=== PATIENT | female | born 1980 | race Caucasian/White ===

== ENCOUNTER 2019-05-30 14:58 | Observation (INO) | payer OTHER ==
[~2019-05-30] VITALS: Ht 180.3 cm; Wt 81.5 kg
[~2019-05-30 14:58] MED LIST changes: -Augmentin 875-1 EACH PO; -CITA20 PO; -FLUC150A PO; -HYDR1TAB94 PO
--- NOTE | 2019-05-30 15:10 | NUR ---
pt arrived to unit walking independently, a/o x 4, vss, npo
[2019-05-30] MEDS ORDERED: CITA20 PO (15:29)
--- NOTE | 2019-05-30 16:40 | NUR ---
DAY SURGERY TRANSPORTING PT VIRI
--- NOTE | 2019-05-30 16:45 | NUR ---
INTO [facility] [place].PT REPORTS 6/10 ABDOMINAL PAIN AT REST THAT INCREASES TO 9/10 WITH MOVEMENT. History, Chart, Medications and Allergies reviewed before start of procedure.Lungs clear T/O to Auscultation. Patient confirms NPO status and agrees with scheduled surgery. Surgical site prepped with 2% Chlorhexidine cloth wipe.SERUM HCG ADDED ON TO BLOOD DRAWN AT THE URGENT CARE AND TO BE RUN STAT. RESULTS TO BE FAXED TO [facility].
--- NOTE | 2019-05-30 21:34 | NUR ---
summary: pt returned from OR at 1830, a/o x 4, awake, denies n/v, denies pain. post op vs commenced and stable
[2019-05-31 04:14] LABS: BASOPHILS ABSOLUTE AUTO 0.02 K/mm3 (0.00-0.23); BASOPHILS PERCENT AUTO 0 % (0-2); EOSINOPHILS PERCENT AUTO 0 % (0-6); Hematocrit 39.3 % (33.0-51.0); Hemoglobin 12.7 g/dL (11.5-16.0); IMMATURE GRAN ABSOLUTE AUTO 0.08 K/mm3 (0.00-0.10); IMMATURE GRAN PERCENT AUTO 1 % (0-1); LYMPHOCYTES ABSOLUTE AUTO 1.23 K/mm3 (0.84-5.20); LYMPHOCYTES PERCENT AUTO 8 % (21-46); MONOCYTES ABSOLUTE AUTO 0.42 K/mm3 (0.16-1.47); MONOCYTES PERCENT AUTO 3 % (4-13); Mean Corpuscular HGB 29.7 pg (26.0-34.0); Mean Corpuscular HGB Conc 32.3 g/dL (31.5-36.5); Mean Corpuscular Volume 92 fL (80-100); Mean Platelet Volume 11.2 fL (9.1-12.4); NEUTROPHILS ABSOLUTE AUTO 13.17 K/mm3 (1.96-9.15); NEUTROPHILS PERCENT AUTO 88 % (41-73); Platelet Count 245 K/mm3 (150-400); RDW Coefficient Variation 13.9 % (11.7-14.2); RDW Standard Deviation 47.3 fL (35.1-46.3); Red Blood Cell Count 4.27 M/mm3 (3.80-5.20); White Blood Cell Count 14.92 K/mm3 (4.00-11.30)
--- NOTE | 2019-05-31 07:23 | NUR ---
SHIFT SUMMARY PT POD#1 LAP APPI. AAOX4. DISCOMFORT CONTROLLED WITH 1 NORCO X2 THIS SHIFT. NO NAUSEA/EMESIS. ABD INCISIONS WITH GAUZE X3 C/D/I. INDEPENDENT IN ROOM. GOOD PO INTAKE + OUTPUT. IV ABX PER ORDERS. PT RESTED WELL T/O NIGHT. PT SITTING UP IN BED AT THIS TIME, NADN, WITH CALL LIGHT IN REACH. REPORT TO DAY SHIFT RN.
[2019-05-31] MEDS ORDERED: Augmentin 875-1 EACH PO (15:16)
[2019-05-31] MEDS ORDERED: HYDR1TAB94 PO (15:17)
[2019-05-31] MEDS ORDERED: FLUC150A PO (15:41)
--- NOTE | 2019-05-31 16:00 | NUR ---
DISCHARGE SUMMARY PT A&OX4, VSS, WALKED OFF FLOOR WITH FAMILY TO GO HOME, WITH ALL PERSONAL POSSESSIONS INCLUDING DISCHARGE PACKET AND 3 SCRIPTS (1 NARC SCRIPT). DC INSTRUCTIONS PROVIDED. PT REP UNDERSTANDING THOSE INSTRUCTIONS INCLUDING STERI STRIPS, OK TO SHOWER/NO TUB/JACUZZI, FU WITH SG IN 2 WKS, SPLINTING. IV DC'D.
== END 2019-05-31 17:15 | disposition home or self-care (01) ==
LOC: SURS 14:58
PROVIDERS: ADMIT Surgery
PROC: 0DTJ4ZZ Resection of Appendix, Percutaneous Endoscopic Approach (ICD-10-PCS; principal; 2019-05-30 17:00)
DX: K35.80 Unspecified acute appendicitis (principal); Z79.891 Long term (current) use of opiate analgesic; Z87.891 Personal history of nicotine dependence; Z79.899 Other long term (current) drug therapy
CPT/HCPCS: 36415; 85025; 88304; 90686; 96365; 96376; A9270-GY; G0378; J0690; J1100; J1885; J2250; J2370; J2405; J2704; J2710; J3010; J7120

== ENCOUNTER → 2019-05-30 | Outpatient (CLI) | payer OTHER ==
[~2019-05-30] MED LIST: ADDERALL 10 MG10 MG PO; Augmentin 875-1 EACH PO; CEPH500 PO; CITA20 PO; FLUC150A PO; HYDR1TAB94 PO; OMEP40CA12 PO; SULTRIDS PO
[2019-05-30 13:33] LABS: BASOPHILS ABSOLUTE AUTO 0.05 K/mm3 (0.00-0.23); BASOPHILS PERCENT AUTO 0 % (0-2); EOSINOPHILS ABSOLUTE AUTO 0.18 K/mm3 (0.00-0.68); EOSINOPHILS PERCENT AUTO 1 % (0-6); Hematocrit 39.3 % (33.0-51.0); Hemoglobin 13.3 g/dL (11.5-16.0); IMMATURE GRAN ABSOLUTE AUTO 0.04 K/mm3 (0.00-0.10); IMMATURE GRAN PERCENT AUTO 0 % (0-1); LYMPHOCYTES PERCENT AUTO 16 % (21-46); MONOCYTES ABSOLUTE AUTO 1.09 K/mm3 (0.16-1.47); MONOCYTES PERCENT AUTO 7 % (4-13); Mean Corpuscular HGB 30.4 pg (26.0-34.0); Mean Corpuscular HGB Conc 33.8 g/dL (31.5-36.5); Mean Corpuscular Volume 90 fL (80-100); Mean Platelet Volume 11.8 fL (9.1-12.4); NEUTROPHILS ABSOLUTE AUTO 11.06 K/mm3 (1.96-9.15); NEUTROPHILS PERCENT AUTO 75 % (41-73); Platelet Count 288 K/mm3 (150-400); RDW Standard Deviation 45.5 fL (35.1-46.3); Red Blood Cell Count 4.37 M/mm3 (3.80-5.20); White Blood Cell Count 14.82 K/mm3 (4.00-11.30)
[2019-05-30 14:01] LABS: Alanine Aminotransfer (ALT/SGP 44 U/L (12-78); Albumin, Blood 3.8 g/dL (3.4-5.0); Alk Phos 75 U/L (40-126); Anion Gap 10 mmol/L (6-16); Aspartate Aminotrans (AST/SGOT 26 U/L (12-37); Bilirubin, Total 0.6 mg/dL (0.1-1.0); Blood Urea Nitrogen 11 mg/dL (8-24); Bun/Creatinine Ratio 16.7 (12.0-20.0); CO2, Blood 28 mmol/L (21-32); Calcium, Blood 9.3 mg/dL (8.5-10.1); Chloride, Blood 102 mmol/L (98-108); Creatinine, Blood 0.66 mg/dL (0.40-1.00); Globulin, Blood 3.7 g/dL (2.2-4.0); Glomerular Filtration Rate >60 (60-); Glucose, Blood 88 mg/dL (70-99); Potassium, Blood 3.9 mmol/L (3.5-5.5); Sodium, Blood 140 mmol/L (136-145); Total Protein, Blood 7.5 g/dL (6.4-8.2)
== END | disposition home or self-care (01) ==
LOC: LAB EV 13:26 → LAB SHORT 13:26
PROVIDERS: Physician Assistant
DX: R10.31 Right lower quadrant pain (principal); N39.0 Urinary tract infection, site not specified
CPT/HCPCS: 80053; 83690; 84703; 85025; 87086

== ENCOUNTER 2020-03-30 09:17 | Day surgery (SDC) | payer OTHER ==
[~2020-03-30] VITALS: Ht 180.3 cm; Wt 85.5 kg
[~2020-03-30 09:17] MED LIST changes: +Augmentin 875-1 EACH PO; +CITA20 PO; +FLUC150A PO; +HYDR1TAB94 PO
[2020-03-30] MEDS ORDERED: LORA1 PO (09:49)
== END 2020-03-30 12:48 | disposition home or self-care (01) ==
LOC: ORSCSDS 09:17
PROVIDERS: Obstetrics & Gynecology
PROC: 0DNW4ZZ Release Peritoneum, Percutaneous Endoscopic Approach (ICD-10-PCS; principal; 2020-03-30 10:30)
PROC: 0U5B4ZZ Destruction of Endometrium, Percutaneous Endoscopic Approach (ICD-10-PCS; principal; 2020-03-30 10:30)
PROC: 0U9 Female Reproductive System, Drainage (ICD-10-PCS; principal; 2020-03-30 10:30)
DX: N92.0 Excessive and frequent menstruation with regular cycle (principal); N80.3 Endometriosis of pelvic peritoneum; N94.6 Dysmenorrhea, unspecified; N94.10 Unspecified dyspareunia; R10.2 Pelvic and perineal pain; Z87.891 Personal history of nicotine dependence
CPT/HCPCS: J0171; J0690; J1100; J2405; J2704; J3010; J7120